=== PATIENT | male | born 1975 | race Caucasian/White ===

== ENCOUNTER 2017-08-25 19:10 | Inpatient (IN) | payer OTHER ==
[~2017-08-25] VITALS: Ht 180.3 cm; Wt 131.8 kg
--- NOTE | ~2017-08-25 | CN ---
PATIENT NAME:MIKI GUTIERREZ MEDICAL RECORD: [id number] : 77 LOCATION:[facility] D.2129 ADMIT DATE: 08/25/17 ACCOUNT: [id number] CONSULTING PHYSICIAN: EMMANUEL PÉREZ MD REFERRING PHYSICIAN: MELLISA LEOS MD DATE OF CONSULTATION: 09/02/2017 HISTORY OF PRESENT ILLNESS: Mr. Gutierrez is a 42-year-old male who is admitted for trauma to his left upper thigh with concomitant pain and swelling. The patient has been seen by multiple physicians, surgeons, cutter grinder, and primary care physicians. I was consulted for this particular case. They felt the patient may have an acute onset of RSD in the left lower extremity. Consulted by Dr. Vikash Winslow and Dr. Valenzuela to evaluate the patient for possible epidural placement. The patient has had extensive workup for DVT, myositis, and outflow tract obstruction. All been negative. I have been consulted for epidural placement in this particular patient. Extensive review of the chart demonstrates that the patient may have cellulitis contribution to some of the swelling in the lower extremity of the left leg. It should be noted that the patient is currently on antibiotics. It should be also noted that the patient's laboratory examination has been defervescing on the patient's particular white count. Examination of the patient and discussing with the patient, the patient does show area of induration of his upper thigh on the left lower extremity. Also, around the posterior aspect of the upper thigh in the posterior component around the popliteal fossa. The patient also relates he has got an area of induration and tenderness in these particular locations. Again, the patient has been on anticoagulation therapy, but Eliquis had been stopped for 72 hours and the patient had last subq heparin dose 12 hours prior to epidural placement. I discussed risks and benefits with the patient of epidural and the patient's . Risk of bleeding, infection, damage to underlying structures for epidural placement. I related to the patient that he is on antibiotic therapy, so we felt that risk of infection was extremely low. I did demonstrate the patient that he has to have a Dolan catheter while the epidural is in place. Other than physical examination of the areas indicated for pain and tenderness and induration of the left upper thigh, the patient also relates that it is painful when places weight on that particular leg. Again, extensive studies have demonstrated no DVT, outflow tract obstruction, and/or abscesses in that particular left lower extremity. The proposed diagnosis is acute onset of RSD, which is contributing to some of the pain and discomfort in the left lower extremity. Epidural placement is planned. Discussed with the patient. The patient elects to proceed with procedure. The patient will be brought to the holding area for a mild sedation and epidural placement. Plan to run the epidural for 48 hours to see if it may make a difference in the patient's particular outcome. I answered all questions by the patient and . TRANSINT:[id number] Voice Confirmation ID: [id number] DOCUMENT ID: [id number] CONSULT REPORT [id number] MIKI GUTIERREZ, EMMANUEL MONROY at 1521 CC: [id number] DICTATION DATE: 09/02/17911 ART CLASS MODEL: 09/02/17 1308 ADM IN [facility] [address] [place] [address]
--- NOTE | ~2017-08-25 | PRO ---
PATIENT:MIKI GUTIERREZ MEDICAL RECORD: [id number] : 77 LOCATION:D. D.2129 ADMISSION DATE: 08/25/17 PROCEDURE PERFORMED BY: EMMANUEL PÉREZ MD DATE OF PROCEDURE: 09/02/2017 Mr. Gutierrez is an inpatient patient who anesthesia pain service was consulted on for acute onset of complex regional pain syndrome or RSD of his left lower extremity. Discussed with the orthopedic surgeon, Dr. Vikash Winslow and primary care Dr. Valenzuela about placing epidural catheter to see if that may ameliorate the acute onset of his RSD. Risks and benefits were explained to the patient including the risk of bleeding, infection and damage to underlying structures. It should be noted that the patient is currently on no anticoagulation therapy at this time. After the patient understanding risks and benefits and all questions were answered, the patient consents to procedure. The patient was brought to the small isolation room in the operating suite. The patient was given 2 cc of fentanyl and 2 mg of Versed. The patient was placed on sitting position. After Betadine prep and drape, sterile wipe was performed with sterile draping. After 1% lidocaine was used to raise skin wheal at L4-L5, after 2 attempts, positive loss of resistance at L4-L5 with 17-gauge Tuohy needle. The catheter was easily threaded. Test dose was negative. The patient was then bolused with 10 mL of 0.25% bupivacaine. After approximately 10 minutes onset, the patient's legs bilaterally were numb and difficult to raise. The patient relates that his pain in his left lower extremity was 8/10 prior to procedure, after the procedure was 0/10. The patient is to continue the epidural for 48 hours to control RSD and pain. Will be removed after 48 hours to determine if successful. TRANSINT:[id number] Voice Confirmation ID: [id number] DOCUMENT ID: [id number] EMMANUEL PÉREZ MD at 0727 CC: [id number] DICTATION DATE: 09/02/17 1210 WHEELCHAIR VAN OPERATOR FIRST RESPONDER: 09/02/17 1522 DIS IN 09/04/17 [place] [address]
--- NOTE | ~2017-08-25 | PN ---
PATIENT:MIKI SANTOYO MEDICAL RECORD: [id number] LOCATION:. D.212 ADMISSION DATE: 08/25/17 PROGRESS NOTE DATE OF SERVICE: 08/28/2017 ADDENDUM CHIEF COMPLAINT: Swelling. The patient states that his swelling has improved. His left thigh is markedly swollen. It is erythematous as well. He actually states that the swelling is better than it was. Passive extension and flexion of the knee hurts. Passive flexion and extension of the left ankle hurts. He still has proprioception involving the left toes. He still has vibratory sense involving the left foot. I am somewhat concerned about a thigh compartment syndrome. I am going to obtain a LDH as well as CPK. I will consult Dr. Winslow for his opinion. Palpation aggravates as well as movement. Nothing alleviates. He is unable to bear weight on the left lower extremity. This was due to a crush injury from a pipe. I am uncertain why he has the degree of erythema that is present. This is a progress note addendum. For the typed portion of the progress note, please see the chart. This will include the past medical and surgical history, current medications, allergies, family history. REVIEW OF SYSTEMS: No nausea, no vomiting, no fever, no chills. Positive for extremity pain and swelling involving the left lower extremity. Review of systems is negative other than as is described above. PHYSICAL EXAMINATION: GENERAL: The patient appears acutely ill. He does not appear chronically ill. VITAL SIGNS: Reviewed. EARS: External ears appear normal. EYES: Extraocular movements are intact. NECK: Trachea is midline. CHEST: No intercostal retractions. PULMONARY: Nonlabored, no stridor. ABDOMEN: No peritonitis with movement. EXTREMITIES: As described above. BACK: No thoracic kyphosis. NEUROLOGIC: Decreased movement in the left lower extremity. Answers questions appropriately. PSYCHIATRIC: Normal affect. LYMPHATIC: No lymphangitic streaking of the exposed extremities. IMPRESSION: Left thigh swelling as well as cellulitis, possible compartment syndrome. PLAN: Consult Dr. Ibrahim for his opinion. Continue IV antibiotics Clindamycin was discontinued due to hiccups. He is now on Teflaro. TRANSINT:[id number] Voice Confirmation ID: [id number] DOCUMENT ID: [id number] PROGRESS NOTE [id number] MIKI SANTOYO, ELIANE MONROY at 1327 CC: [id number] DICTATION DATE: 08/28/172050 ZOOGLER: 08/29/17 0121 ADM IN [facility] [address] [place] [id number]
--- NOTE | ~2017-08-25 | DS ---
PATIENT:MIKI SANTOYO :77 MEDICAL RECORD: [id number] DISCHARGE SUMMARY ADMISSION DATE: 08/25/17 DISCHARGE DATE: 09/04/17 This is a discharge dated 09/04/2017 from the inpatient hospital. DISCHARGE DIAGNOSES: 1. Left lower extremity cellulitis. 2. Reflex sympathetic dystrophy. 3. Hyponatremia. 4. Acute kidney injury. 5. Hypotension. 6. Hypokalemia. 7. Obesity. 8. Hiccups. 9. Leukocytosis. 10. Reflux. 11. Diverticulitis. CONSULTS THIS HOSPITALIZATION: 1. Orthopedics with Dr. Winslow 2. Surgery with Dr. Packer. PROCEDURES THIS HOSPITALIZATION: Epidural block with Dr. Christine on 09/02/2017. HOSPITAL COURSE: Full H&P is located elsewhere on the chart on this 42-year-old male who was admitted for treatment of worsening cellulitis of the left thigh status post an accident. He was started on IV clindamycin for antibiotic coverage with IV fluids for hydration, sodium and renal function improved with hydration. Surgery was consulted. He was seen by Dr. Packer. A CT of the thigh was negative for abscess, Levaquin was added to cover Gram-negative rods. Hypotension resolved with normal saline bolus. Electrolytes were managed by protocol. Clindamycin was discontinued due to hiccups. Orthopedics was consulted. He was seen by Dr. Winslow. CT angiogram was negative. Antibiotics were adjusted. Teflaro and vancomycin were added. He was started on gabapentin for treatment of RSD and he was started on heparin with Eliquis on hold in preparation for a nerve block. Anesthesia was consulted. He underwent an epidural block on 09/02/[address] Christine. The epidural catheter was removed after 48 hours. He had significant improvement overall and was considered stable for discharge on 09/04/2017. DISCHARGE MEDICATIONS: As per discharge medication reconciliation. DISCHARGE DISPOSITION: The patient is discharged home. He will continue his current diet and level of activity and will follow up with primary care in 1 week. He will have a PT eval as an outpatient. Will follow up with orthopedics in 1 week and will be seen by [facility]. At least 30 minutes was spent in this discharge activity. TRANSINT:[id number] Voice Confirmation ID: [id number] DOCUMENT ID: [id number] Dictated By: FRITZ ISLAS I have interviewed/examined the above patient and agree with these documented DISCHARGE SUMMARY REPORT [id number] MIKI SANTOYO. ISABEL REYNAGA MD at 1459 at 1500 CC: [id number] DICTATION DATE: 10/03/17 185 PROFESSOR OF [employer]IMINAL JUSTICE: 10/04/17 1134 DIS IN 09/04/17 [place] [id number] [place] [id number]
[2017-08-25 20:47] LABS: HEMATOCRIT 39.7 % (42.0-54.0); HEMOGLOBIN 14.5 g/dL (13.5-17.5); MCH 29.8 pg (26.0-34.0); MCHC 36.5 g/dL (31.0-37.0); MCV 81.7 fL (80.0-100.0); MEAN PLATELET VOLUME 11.1 fL (7.4-10.4); PLATELET COUNT 152 10x3/uL (130-400); RBC 4.86 10x6/uL (4.20-6.10); RDW 12.1 % (11.5-14.5); WBC 20.9 10x3/uL (4.8-10.8)
[2017-08-25 21:00] LABS: EOSINOPHILS 2 % (0-7); LYMPHOCYTES 10 % (15-50); MONOCYTES 6 % (2-11); NEUTROPHILS 82 % (40-80); PLATELET ESTIMATE NORMAL
[2017-08-25 21:01] LABS: ALBUMIN 2.5 g/dL (3.4-5.0); ANION GAP 11.3 mmol/L (8-16); BILIRUBIN - TOTAL 1.16 mg/dL (0.2-1.3); CALCIUM 8.2 mg/dL (8.5-10.1); CARBON DIOXIDE 27.3 mmol/L (21.0-32.0); POTASSIUM - SERUM 3.6 mmol/L (3.5-5.1); PROTEIN - SERUM 6.6 g/dL (6.4-8.2)
[2017-08-25] MEDS ORDERED: ULTRAM50 MG PO (23:37)
[2017-08-25] MEDS ORDERED: ROBAXIN500 MG PO (23:38)
[2017-08-26] VITALS: BP 123/65
[2017-08-26 04:28] LABS: APPEARANCE CLEAR (CLEAR); BILIRUBIN NEGATIVE (NEGATIVE); COLOR YELLOW (YELLOW); GLUCOSE NEGATIVE (NEGATIVE); KETONE NEGATIVE (NEGATIVE); NITRITE NEGATIVE (NEGATIVE); PROTEIN 1+ mg/dL (NEGATIVE); SPECIFIC GRAVITY 1.015 (1.005-1.020); UROBILINOGEN NORMAL (NORMAL)
[2017-08-26 04:29] LABS: BACTERIA MODERATE /hpf (NONE SEEN); EPITHELIAL CELLS 0-5 /hpf (0-5); GRANULAR CAST OCC /lpf (NONE SEEN); HYALINE CAST 0-5 /lpf (NONE SEEN); RED CELLS - URINE 0-5 /hpf (0-5); WHITE CELLS - URINE 0-5 /hpf (0-5)
[2017-08-26 05:05] LABS: BASOPHILS 0.1 % (0-2); EOSINOPHILS 0 % (0-7); HEMOGLOBIN 13.1 g/dL (13.5-17.5); IMMATURE GRANULOCYTES 0.7 % (0-5); LYMPHOCYTES 2.8 % (15-50); MCHC 35.4 g/dL (31.0-37.0); MCV 81.9 fL (80.0-100.0); MEAN PLATELET VOLUME 11.5 fL (7.4-10.4); MONOCYTES 7.9 % (2-11); NEUTROPHILS 88.5 % (40-80); PLATELET COUNT 146 10x3/uL (130-400); RBC 4.52 10x6/uL (4.20-6.10); RDW 12.3 % (11.5-14.5); WBC 17.7 10x3/uL (4.8-10.8)
[2017-08-26 05:22] LABS: ANION GAP 10.7 mmol/L (8-16); CALCIUM 7.6 mg/dL (8.5-10.1); CARBON DIOXIDE 28.6 mmol/L (21.0-32.0); CREATININE - SERUM 1.6 mg/dL (0.6-1.3); POTASSIUM - SERUM 3.3 mmol/L (3.5-5.1)
[2017-08-26 08:51] VITALS: BP 122/60
[2017-08-26 12:30] VITALS: BP 130/62
[2017-08-26 20:00] VITALS: BP 112/56
[2017-08-27] VITALS: BP 105/57
[2017-08-27 04:00] VITALS: BP 101/56
[2017-08-27 05:59] LABS: BASOPHILS 0.1 % (0-2); EOSINOPHILS 0.3 % (0-7); HEMATOCRIT 36.3 % (42.0-54.0); HEMOGLOBIN 12.7 g/dL (13.5-17.5); IMMATURE GRANULOCYTES 0.9 % (0-5); LYMPHOCYTES 3.9 % (15-50); MCH 29.1 pg (26.0-34.0); MCV 83.3 fL (80.0-100.0); MEAN PLATELET VOLUME 11.3 fL (7.4-10.4); MONOCYTES 11.1 % (2-11); NEUTROPHILS 83.7 % (40-80); RBC 4.36 10x6/uL (4.20-6.10); RDW 12.3 % (11.5-14.5); WBC 18.3 10x3/uL (4.8-10.8)
[2017-08-27 06:04] LABS: PLATELET COUNT 178 10x3/uL (130-400)
[2017-08-27 06:13] LABS: ANION GAP 10.1 mmol/L (8-16); CARBON DIOXIDE 30.1 mmol/L (21.0-32.0); CREATININE - SERUM 1.2 mg/dL (0.6-1.3); POTASSIUM - SERUM 3.2 mmol/L (3.5-5.1)
[2017-08-27 08:32] VITALS: BP 109/60
[2017-08-27 12:05] VITALS: BP 93/51
[2017-08-27 20:00] VITALS: BP 99/60
[2017-08-28] VITALS: BP 108/58
[2017-08-28 04:00] VITALS: BP 88/53
[2017-08-28 05:58] LABS: BASOPHILS 0.3 % (0-2); EOSINOPHILS 0.7 % (0-7); HEMATOCRIT 35.6 % (42.0-54.0); HEMOGLOBIN 12.3 g/dL (13.5-17.5); IMMATURE GRANULOCYTES 2.7 % (0-5); LYMPHOCYTES 8.7 % (15-50); MCH 28.9 pg (26.0-34.0); MCHC 34.6 g/dL (31.0-37.0); MCV 83.8 fL (80.0-100.0); MEAN PLATELET VOLUME 10.8 fL (7.4-10.4); MONOCYTES 8.7 % (2-11); NEUTROPHILS 78.9 % (40-80); PLATELET COUNT 204 10x3/uL (130-400); RBC 4.25 10x6/uL (4.20-6.10); RDW 12.4 % (11.5-14.5); WBC 17.6 10x3/uL (4.8-10.8)
[2017-08-28 06:17] LABS: CALCIUM 7.7 mg/dL (8.5-10.1); CARBON DIOXIDE 30.1 mmol/L (21.0-32.0); CHLORIDE - SERUM 95 mmol/L (98-107); GLUCOSE 125 mg/dL (74-106); SODIUM 132 mmol/L (136-145); eGFR NON AFRICAN AMERICAN 87 mL/min (90-120)
[2017-08-28 06:33] LABS: CALC OSMOLALITY 265 mosm/kg (275-300); POTASSIUM - SERUM 2.9 mmol/L (3.5-5.1); UREA NITROGEN 12 mg/dL (7-18)
[2017-08-28 08:09] VITALS: BP 103/58
[2017-08-28 12:02] VITALS: BP 109/54
[2017-08-28 16:41] VITALS: BP 106/64
[2017-08-28 19:00] VITALS: BP 145/65
[2017-08-28 22:29] LABS: CALC OSMOLALITY 266 mosm/kg (275-300); CALCIUM 7.8 mg/dL (8.5-10.1); CARBON DIOXIDE 31.3 mmol/L (21.0-32.0); CHLORIDE - SERUM 95 mmol/L (98-107); CREATINE KINASE 131 UL (21-232); CREATININE - SERUM 1.1 mg/dL (0.6-1.3); GLUCOSE 117 mg/dL (74-106); LDH 253 U/L (85-227); POTASSIUM - SERUM 3.3 mmol/L (3.5-5.1); SODIUM 133 mmol/L (136-145); UREA NITROGEN 12 mg/dL (7-18); eGFR NON AFRICAN AMERICAN 78 mL/min (90-120)
[2017-08-29] VITALS: BP 116/51
[2017-08-29 04:00] VITALS: BP 117/60
[2017-08-29 06:04] LABS: BASOPHILS 0.3 % (0-2); HEMATOCRIT 36.9 % (42.0-54.0); HEMOGLOBIN 12.5 g/dL (13.5-17.5); LYMPHOCYTES 12.5 % (15-50); MCH 28.7 pg (26.0-34.0); MCHC 33.9 g/dL (31.0-37.0); MCV 84.6 fL (80.0-100.0); MONOCYTES 11.1 % (2-11); NEUTROPHILS 69.1 % (40-80); RBC 4.36 10x6/uL (4.20-6.10); RDW 12.6 % (11.5-14.5); WBC 17.1 10x3/uL (4.8-10.8)
[2017-08-29 06:17] LABS: PLATELET COUNT 266 10x3/uL (130-400)
[2017-08-29 06:26] LABS: CALC OSMOLALITY 268 mosm/kg (275-300); CALCIUM 7.9 mg/dL (8.5-10.1); CHLORIDE - SERUM 96 mmol/L (98-107); GLUCOSE 102 mg/dL (74-106); POTASSIUM - SERUM 3.3 mmol/L (3.5-5.1); SODIUM 135 mmol/L (136-145); UREA NITROGEN 10 mg/dL (7-18); eGFR NON AFRICAN AMERICAN 87 mL/min (90-120)
[2017-08-29 07:35] VITALS: BP 88/47
[2017-08-29 11:55] VITALS: BP 103/66
[2017-08-29 15:09] VITALS: BP 117/66
[2017-08-29 20:36] VITALS: BP 109/56
[2017-08-30 01:20] VITALS: BP 110/58
[2017-08-30 05:31] VITALS: BP 103/53
[2017-08-30 06:06] LABS: BASOPHILS 0.4 % (0-2); EOSINOPHILS 1.3 % (0-7); HEMATOCRIT 36.7 % (42.0-54.0); HEMOGLOBIN 12.4 g/dL (13.5-17.5); IMMATURE GRANULOCYTES 6.7 % (0-5); LYMPHOCYTES 12.1 % (15-50); MCHC 33.8 g/dL (31.0-37.0); MCV 85.9 fL (80.0-100.0); MEAN PLATELET VOLUME 9.9 fL (7.4-10.4); MONOCYTES 10.4 % (2-11); NEUTROPHILS 69.1 % (40-80); PLATELET COUNT 299 10x3/uL (130-400); RBC 4.27 10x6/uL (4.20-6.10); RDW 12.7 % (11.5-14.5); WBC 14.1 10x3/uL (4.8-10.8)
[2017-08-30 06:23] LABS: CALC OSMOLALITY 272 mosm/kg (275-300); CALCIUM 7.7 mg/dL (8.5-10.1); CARBON DIOXIDE 34.4 mmol/L (21.0-32.0); CHLORIDE - SERUM 101 mmol/L (98-107); GLUCOSE 116 mg/dL (74-106); POTASSIUM - SERUM 3.9 mmol/L (3.5-5.1); SODIUM 137 mmol/L (136-145); UREA NITROGEN 8 mg/dL (7-18); eGFR NON AFRICAN AMERICAN 87 mL/min (90-120)
[2017-08-30 08:04] VITALS: BP 84/50
[2017-08-30 13:22] VITALS: BP 103/52
[2017-08-30 15:45] VITALS: BP 110/60
[2017-08-30 19:00] VITALS: BP 125/62
[2017-08-31 04:00] VITALS: BP 104/61
[2017-08-31 06:01] LABS: BASOPHILS 0.3 % (0-2); EOSINOPHILS 1.9 % (0-7); HEMATOCRIT 38.5 % (42.0-54.0); HEMOGLOBIN 12.7 g/dL (13.5-17.5); IMMATURE GRANULOCYTES 8.3 % (0-5); LYMPHOCYTES 14.7 % (15-50); MEAN PLATELET VOLUME 9.9 fL (7.4-10.4); MONOCYTES 7.4 % (2-11); NEUTROPHILS 67.4 % (40-80); PLATELET COUNT 331 10x3/uL (130-400); RBC 4.38 10x6/uL (4.20-6.10); RDW 12.7 % (11.5-14.5); WBC 11.9 10x3/uL (4.8-10.8)
[2017-08-31 06:08] LABS: ANION GAP 6.4 mmol/L (8-16); CARBON DIOXIDE 29.8 mmol/L (21.0-32.0); CREATININE - SERUM 1.2 mg/dL (0.6-1.3); POTASSIUM - SERUM 4.2 mmol/L (3.5-5.1)
[2017-08-31 06:14] LABS: MCV 87.9 fL (80.0-100.0)
[2017-08-31 08:31] VITALS: BP 109/69
[2017-08-31 12:00] VITALS: BP 97/46
[2017-08-31 14:50] VITALS: Ht 180.3 cm; Wt 131.8 kg
[2017-08-31 19:00] VITALS: BP 112/61
[2017-09-01 04:00] VITALS: BP 129/69
[2017-09-01 05:32] LABS: BASOPHILS 0.2 % (0-2); EOSINOPHILS 2.1 % (0-7); HEMATOCRIT 37.4 % (42.0-54.0); HEMOGLOBIN 12.3 g/dL (13.5-17.5); IMMATURE GRANULOCYTES 8.1 % (0-5); LYMPHOCYTES 18.3 % (15-50); MCH 28.9 pg (26.0-34.0); MCHC 32.9 g/dL (31.0-37.0); MEAN PLATELET VOLUME 9.2 fL (7.4-10.4); MONOCYTES 10.2 % (2-11); NEUTROPHILS 61.1 % (40-80); PLATELET COUNT 348 10x3/uL (130-400); RBC 4.25 10x6/uL (4.20-6.10); RDW 12.8 % (11.5-14.5); WBC 10.1 10x3/uL (4.8-10.8)
[2017-09-01 06:15] LABS: ALBUMIN 1.6 g/dL (3.4-5.0); ALKALINE PHOSPHATASE 64 U/L (46-116); ALT (SGPT) 37 U/L (10-68); BILIRUBIN - TOTAL 0.21 mg/dL (0.2-1.3); CALC OSMOLALITY 273 mosm/kg (275-300); CALCIUM 7.7 mg/dL (8.5-10.1); CARBON DIOXIDE 28.8 mmol/L (21.0-32.0); CHLORIDE - SERUM 104 mmol/L (98-107); GLUCOSE 132 mg/dL (74-106); POTASSIUM - SERUM 3.8 mmol/L (3.5-5.1); PROTEIN - SERUM 5.8 g/dL (6.4-8.2); SODIUM 137 mmol/L (136-145); eGFR NON AFRICAN AMERICAN 87 mL/min (90-120)
[2017-09-01 06:16] LABS: UREA NITROGEN 8 mg/dL (7-18)
[2017-09-01 08:11] VITALS: BP 108/48
[2017-09-01 12:29] VITALS: BP 92/48
[2017-09-01 16:11] VITALS: BP 102/60
[2017-09-01 23:18] VITALS: BP 115/69
[2017-09-02 04:22] VITALS: BP 115/67
[2017-09-02 04:57] LABS: BASOPHILS 0.5 % (0-2); EOSINOPHILS 1.6 % (0-7); HEMOGLOBIN 12.2 g/dL (13.5-17.5); IMMATURE GRANULOCYTES 7.6 % (0-5); LYMPHOCYTES 23.3 % (15-50); MCH 29.1 pg (26.0-34.0); MCV 88.3 fL (80.0-100.0); MEAN PLATELET VOLUME 9.3 fL (7.4-10.4); MONOCYTES 10.5 % (2-11); NEUTROPHILS 56.5 % (40-80); PLATELET COUNT 331 10x3/uL (130-400); RBC 4.19 10x6/uL (4.20-6.10); RDW 12.7 % (11.5-14.5); WBC 8.3 10x3/uL (4.8-10.8)
[2017-09-02 05:21] LABS: ALBUMIN 1.6 g/dL (3.4-5.0); ANION GAP 8.1 mmol/L (8-16); BILIRUBIN - TOTAL 0.3 mg/dL (0.2-1.3); CALCIUM 7.8 mg/dL (8.5-10.1); CARBON DIOXIDE 29.4 mmol/L (21.0-32.0); CREATININE - SERUM 1.2 mg/dL (0.6-1.3); POTASSIUM - SERUM 3.5 mmol/L (3.5-5.1); PROTEIN - SERUM 5.7 g/dL (6.4-8.2)
[2017-09-02 07:56] VITALS: BP 100/57
[2017-09-02 16:04] VITALS: BP 105/60
[2017-09-02 20:51] VITALS: BP 128/77
[2017-09-03 00:29] VITALS: BP 118/76
[2017-09-03 04:17] VITALS: BP 113/71
[2017-09-03 06:29] LABS: BASOPHILS 0.2 % (0-2); EOSINOPHILS 1.3 % (0-7); HEMATOCRIT 37.7 % (42.0-54.0); HEMOGLOBIN 12.1 g/dL (13.5-17.5); IMMATURE GRANULOCYTES 5.7 % (0-5); LYMPHOCYTES 28.3 % (15-50); MCH 28.4 pg (26.0-34.0); MCHC 32.1 g/dL (31.0-37.0); MCV 88.5 fL (80.0-100.0); MONOCYTES 11.5 % (2-11); PLATELET COUNT 299 10x3/uL (130-400); RBC 4.26 10x6/uL (4.20-6.10); RDW 12.9 % (11.5-14.5)
[2017-09-03 06:32] LABS: WBC 5.3 10x3/uL (4.8-10.8)
[2017-09-03 07:03] LABS: ALBUMIN 1.8 g/dL (3.4-5.0); ALKALINE PHOSPHATASE 62 U/L (46-116); ALT (SGPT) 35 U/L (10-68); BILIRUBIN - TOTAL 0.22 mg/dL (0.2-1.3); CALC OSMOLALITY 276 mosm/kg (275-300); CALCIUM 8.4 mg/dL (8.5-10.1); CARBON DIOXIDE 33.1 mmol/L (21.0-32.0); CHLORIDE - SERUM 104 mmol/L (98-107); CREATININE - SERUM 1.1 mg/dL (0.6-1.3); GLUCOSE 111 mg/dL (74-106); POTASSIUM - SERUM 4.2 mmol/L (3.5-5.1); PROTEIN - SERUM 6.1 g/dL (6.4-8.2); SODIUM 139 mmol/L (136-145); UREA NITROGEN 8 mg/dL (7-18); eGFR NON AFRICAN AMERICAN 78 mL/min (90-120)
[2017-09-03 08:00] VITALS: BP 103/65
[2017-09-03 12:00] VITALS: BP 101/68
[2017-09-03 16:00] VITALS: BP 104/67
[2017-09-03 20:45] VITALS: BP 106/70
[2017-09-04 00:30] VITALS: BP 112/67
[2017-09-04 07:40] LABS: BASOPHILS 0.2 % (0-2); HEMATOCRIT 36.9 % (42.0-54.0); IMMATURE GRANULOCYTES 2.7 % (0-5); LYMPHOCYTES 31.7 % (15-50); MCH 28.8 pg (26.0-34.0); MCHC 32.5 g/dL (31.0-37.0); MCV 88.5 fL (80.0-100.0); MEAN PLATELET VOLUME 9.2 fL (7.4-10.4); MONOCYTES 12.9 % (2-11); NEUTROPHILS 50.5 % (40-80); PLATELET COUNT 255 10x3/uL (130-400); RBC 4.17 10x6/uL (4.20-6.10); RDW 12.7 % (11.5-14.5)
[2017-09-04 08:00] VITALS: BP 113/70
[2017-09-04 08:17] LABS: ALBUMIN 1.8 g/dL (3.4-5.0); ANION GAP 7.3 mmol/L (8-16); BILIRUBIN - TOTAL 0.2 mg/dL (0.2-1.3); CALCIUM 8.2 mg/dL (8.5-10.1); CREATININE - SERUM 1.2 mg/dL (0.6-1.3); POTASSIUM - SERUM 4.3 mmol/L (3.5-5.1); PROTEIN - SERUM 6.1 g/dL (6.4-8.2)
[2017-09-04 12:00] VITALS: BP 107/68
[2017-09-04] MEDS ORDERED: ELIQUIS2.5 MG PO (14:40)
[2017-09-04] MEDS ORDERED: NEURONTIN 300300 MG PO (14:40)
== END 2017-09-04 18:52 | disposition home or self-care (01) | DRG 74 ==
LOC: D.ER 19:10 → D.M2 21:27
PROVIDERS: Emergency Medicine; Family Medicine; Physician Assistant Medical; Surgery
PROC: 0T9B70Z Drainage of Bladder with Drainage Device, Via Natural or Artificial Opening (ICD-10-PCS; principal; 2017-09-02)
PROC: 00HU33Z Insertion of Infusion Device into Spinal Canal, Percutaneous Approach (ICD-10-PCS; 2017-09-02)
PROC: 3E0R3BZ Introduction of Anesthetic Agent into Spinal Canal, Percutaneous Approach (ICD-10-PCS; 2017-09-02)
DX: G90.522 Complex regional pain syndrome I of left lower limb (principal); L03.116 Cellulitis of left lower limb; E87.1 Hypo-osmolality and hyponatremia; N17.9 Acute kidney failure, unspecified; W22.8XXA Striking against or struck by other objects, initial encounter; L27.0 Generalized skin eruption due to drugs and medicaments taken internally; T36.8X5A Adverse effect of other systemic antibiotics, initial encounter; R06.6 Hiccough; I95.9 Hypotension, unspecified; E66.9 Obesity, unspecified; Z68.37 Body mass index [BMI] 37.0-37.9, adult; E87.6 Hypokalemia; Z87.891 Personal history of nicotine dependence

== ENCOUNTER → 2018-02-08 14:04 | Outpatient (CLI) | payer SELFPAY ==
[2017-08-31 14:50] VITALS: BMI 37.5
[~2018-02-08 14:04] MED LIST: ELIQUIS2.5 MG PO; NEURONTIN 300300 MG PO; ROBAXIN500 MG PO; ULTRAM50 MG PO
[2018-02-08 14:38] LABS: APPEARANCE CLEAR (CLEAR); COLOR YELLOW (YELLOW)
[2018-02-08 14:39] LABS: BILIRUBIN NEGATIVE (NEGATIVE); GLUCOSE NEGATIVE (NEGATIVE); KETONE NEGATIVE (NEGATIVE); NITRITE NEGATIVE (NEGATIVE); PROTEIN NEGATIVE (NEGATIVE); UROBILINOGEN NORMAL (NORMAL)
[2018-02-08 14:48] LABS: UDS - AMPHET NEGATIVE QUAL (NEGATIVE); UDS - BARB NEGATIVE QUAL (NEGATIVE); UDS - BENZO NEGATIVE QUAL (NEGATIVE); UDS - COCAINE NEGATIVE QUAL (NEGATIVE); UDS - OPIATE NEGATIVE QUAL (NEGATIVE); UDS - PCP NEGATIVE QUAL (NEGATIVE); UDS - THC NEGATIVE QUAL (NEGATIVE)
== END | disposition home or self-care (01) ==
LOC: D.LABREF 14:04
PROVIDERS: Orthopaedic Surgery
DX: M79.605 Pain in left leg (principal)

== ENCOUNTER → 2018-05-17 11:21 | Outpatient (CLI) | payer OTHER ==
[2017-08-31 14:50] VITALS: BMI 37.5
[2018-05-17 12:04] LABS: CALC OSMOLALITY 276 mosm/kg (275-300); CALCIUM 8.3 mg/dL (8.5-10.1); CARBON DIOXIDE 30.1 mmol/L (21.0-32.0); CHLORIDE - SERUM 105 mmol/L (98-107); GLUCOSE 95 mg/dL (74-106); POTASSIUM - SERUM 4.1 mmol/L (3.5-5.1); SODIUM 138 mmol/L (136-145); UREA NITROGEN 14 mg/dL (7-18); eGFR NON AFRICAN AMERICAN 87 mL/min (90-120)
== END | disposition home or self-care (01) ==
LOC: D.LAB 11:21
PROVIDERS: Orthopaedic Surgery
DX: M62.82 Rhabdomyolysis (principal)

== ENCOUNTER → 2020-04-30 11:50 | Outpatient (CLI) | payer OTHER ==
[2017-08-31 14:50] VITALS: BMI 37.5
== END | disposition home or self-care (01) ==
LOC: D.LAB 11:50
PROVIDERS: ATTEND Orthopaedic Surgery
DX: M89.00 Algoneurodystrophy, unspecified site (principal); M79.605 Pain in left leg